=== PATIENT | female | born 1960 | race Caucasian/White ===

== ENCOUNTER 2023-10-07 19:26 | Observation (INO) | payer OTHER ==
--- OUTSIDE RECORDS SUMMARY | 2023-10-07 19:32 | XMS REPORT | Continuity of Care Document ---
:1960 Author Organization [facility] t Address [address] [place] [address] [address] [place] [address] Care Team Providers Name Role Phone Dio Gupta Primary Care Physician BAIRON BELTRAN Attending Clinician Unavailable BAIRON BELTRAN Attending Clinician Unavailable [email or web address] Attending Clinician Unavailable Doctor Unassigned, [place] Attending Clinician Unavailable DARIEN BALLARD Attending Clinician Unavailable DARIEN BALLARD Attending Clinician Unavailable Goldy Kong Attending Clinician Adrianou_P Attending Clinician Unavailable [email or web address] Admitting Clinician Unavailable Abdoul_P Admitting Clinician Unavailable Payers Payer Name Policy Type Policy Number Effective Date Expiration Date [facility] [id number] 2017 00:00:00 [facility] [id number] 2023 PPO/POS 00:00:00 [facility] [id number] GROUP \T\ PENSION [id number] 2017 [facility] 00:00:00 Problems Condition Condition Condition Status Onset Resolution Last Treating Co mments Source Name Details Category Date Date Treatment Clinician Date Obesity Obesity Disease Active 2022-11 Univers (BMI (BMI 0-03 ity of 30-39.9) 30-39.9) 00:00: [place] [facility] Postmenopa Postmenopa Disease Active 2022-11 U nivers usal usal 0-03 ity of bleeding bleeding 00:00: [place] [facility] Chronic Chronic Disease Active 2022-11 Univers pain pain 0-03 ity of disorder disorder 00:00: [place] [facility] Cervical Cervical Disease Active 2022-11 Unive rs spondylosi spondylosi 0-03 it y of s s 00:00: [place] [facility] Tj' Tj' Disease Active U nivers s disease s disease 6- ity of 00:00: [place] [facility] Confusiona Confusion Problem Active 2023-07-06 Memoria l state al state 14:38:01 l (disorder) (disorder) Ruddy ann Active Problem 07/06/2023 [facility] Dizziness Dizziness Problem Active 2023-07-06 Memoria (finding) (finding) 14:38:01 l Active [place] Problem 07/06/2023 [facility] Headache Headache Problem Active 2023-07-06 Memoria (finding) (finding) 14:38:01 l Active [place] Problem 07/06/2023 [facility] Hypertensi Hypertens Problem Active 2023-07-06 Memoria ve junito 14:38:01 l disorder, disorder, Herm glenna systemic systemic arterial arterial (disorder) (disorder) Active Problem 07/06/2023 [facility] Hyperlipid Hyperlipi Problem Active 2023-07-06 Memoria emia demia 14:38:01 l (disorder) (disorder) He ann Active Problem 07/06/2023 [facility] Hypothyroi Hypothyro Problem Active 2023-07-06 Memoria dism idism 14:38:01 l (disorder) (disorder) He ann Active Problem 07/06/2023 [facility] Lumbar Lumbar Problem Active 2023-07-06 John harley radiculopa radiculopa 14:38:01 l thy thy [place] (disorder) (disorder) Active Problem 07/06/2023 [facility] Morbid Morbid Problem Active 2023-07-06 [facility] obesity obesity 14:38:01 l (disorder) (disorder) Ruddy rmann Active Problem 07/06/2023 [facility] Paresthesi Problem Active 2023-07-06 M emoria a Paresthesi 14:38:01 l (finding) a Sb (finding) Active Problem 07/06/2023 [facility] Tardive Tardive Problem Active 2023-07-06 Me moria dyskinesia dyskinesia 14:38:01 l (disorder) (disorder) He rmann Active Problem 07/06/2023 [facility] Cervical Cervical Problem Active 2023-07-06 Memoria radiculopa radiculopa 14:38:01 l thy thy [place] (disorder) (disorder) Active Problem 07/06/2023 [facility] Allergies, Adverse Reactions, Alerts Allergy Allergy Status Severity Reaction(s) Onset Inactive Treating Comm ents Source Name Type Date Date Clinician PENICILL DRUG Active Swelling Univer s IN INGREDI 07-02 ity of 00:00: [place] [address] [place] [address] Branch Penicill Propensi Active Swelling Univ ers in ty to 07-02 ity of adverse 00:00: [place] reaction 00 Medical s Branch PENICILL Allergy Active Moderate Hives [place] [facility] Medical e Group ibuprofe ibuprofe Active Memori a n n l [place] penicill penicill Active Memori a in in l [place] Social History Social Habit Start Date Stop Date Quantity Comments Source Gender identity [facility]it y [facility] Sexual orientation Univer sity [facility] History of tobacco Cigarette Smoker University of use [facility] History of Social 2023-08-15 2023-08-15 Univers ity of function 00:00:00 00:00:00 [facility] Alcohol intake 2023-08-15 2023-08-15 Current drinker Unive rsity of 00:00:00 00:00:00 of alcohol [facility] (finding) [place] Alcohol Comment 2018-07-02 2018-07-02 social Universit y of 00:00:00 00:00:00 [facility] Sex Ass[birth year] Universit y of 00:00:00 00:00:00 [facility] Smoking Status Start Date Stop Date Source Occasional tobacco 2023-08-13 00:00:00 Universit y of [place] smoker [facility] Tobacco smoking status 2023-07-03 18:06:09 2023-07-03 Memor khadar Basurto 18:06:09 Medications Ordered Filled Start Stop Current Ordering Indication Dosage Frequency Signature Comments Components Source Medication Medication Date Date Medication? Clinician (SIG) Name Name [facility] Yes Take by Univers ubiquinol, 0-03 mouth. ity of 100 mg Cap 15:01: [address] coQ10, 2022-11 Yes Take by Univers ubiquinol, 0-03 mouth. ity of 100 mg Cap 15:01: [address] coQ10, 2022-11 Yes Take by Univers ubiquinol, 0-03 mouth. ity of 100 mg Cap 15:01: [address]102022-11 Yes Take by Univers ubiquinol, 0-03 mouth. ity of 100 mg Cap 15:01: [address] coQ102022-11 Yes Take by Univers ubiquinol, 0-03 mouth. ity of 100 mg Cap 15:01: [address] coQ102022-11 Yes Take by Univers ubiquinol, 0-03 mouth. ity of 100 mg Cap 15:01: [address] coQ10, 2022-11 Yes Take by Univers ubiquinol, 0-03 mouth. ity of 100 mg Cap 15:01: [address] coQ10, 2022-11 Yes Take by Univers ubiquinol, 0-03 mouth. ity of 100 mg Cap 15:01: [address] coQ10, 2022-11 Yes Take by Univers ubiquinol, 0-03 mouth. ity of 100 mg Cap 15:01: [address] coQ10, 2022-11 Yes Take by Univers ubiquinol, 0-03 mouth. ity of 100 mg Cap 15:01: [address] coQ10, 2022-11 Yes Take by Univers ubiquinol, 0-03 mouth. ity of 100 mg Cap 15:01: [address] coQ102022-11 Yes Take by Univers ubiquinol, 0-03 mouth. ity of 100 mg Cap 15:01: [address] Branch coQ102022-11 Yes Take by Univers ubiquinol, 0-03 mouth. ity of 100 mg Cap 15:01: [address] Branch coQ102022-11 Yes Take by Univers ubiquinol, 0-03 mouth. ity of 100 mg Cap 15:01: [place] [address] Medical Branch magnesium 2022-11- No 400mg Take 400 Un hany oxide 0-03 10-03 mg by ity of (MAGOX) 400 07:46: [place] mg tablet 27 :00 daily. Medical Branch magnesium 2022-11- No 400mg Take 400 Un hany oxide 0-03 10-03 mg by ity of (MAGOX) 400 07:46: [place] mg tablet 27 :00 daily. Medical Branch magnesium 2022-11- No 400mg Take 400 Un hany oxide 0-03 10-03 mg by ity of (MAGOX) 400 07:46: 00:[place] mg tablet 27 :00 daily. Medical Branch magnesium 2022-11- No 400mg Take 400 Un hany oxide 0-03 10-03 mg by ity of (MAGOX) 400 07:46: 00:[place] mg tablet 27 :00 daily. Medical Branch deutetraben Yes 24 mg = 2 M emoria azine 12 mg 6-30 tab, PO, l oral tablet 23:38: BID, # 120 Sb 00 tab, 3 Refill(s), Pharmacy: [facility], 154.94, cm, 05/09/23 13:08:00 CDT, Height, 92.273, kg, 05/09/23 13:08:00 CDT, Weight deutetraben 0 Yes 24 mg = 2 M emoria azine 12 mg 6-30 tab, PO, l oral tablet 23:38: BID, # 120 Sb 00 tab, 3 Refill(s), Pharmacy: [facility], 154.94, cm, 05/09/23 13:08:00 CDT, Height, 92.273, kg, 05/09/23 13:08:00 CDT, Weight [place] 9 Yes 18 mg = 2 Mem oria mg oral 3-17 tab, PO, l tablet 22:09: BID, # 120 Juliet nn 00 tab, 3 Refill(s) [place] 9 Yes 18 mg = 2 Mem oria mg oral 3-17 tab, PO, l tablet 22:09: BID, # 120 [place] nn 00 tab, 3 Refill(s) spironolact Yes TAKE 1 John harley one 50 mg 3-15 TABLET BY l oral tablet 15:35: MOUTH ONCE Sb DAILY UTILIZATION MANAGER Thyroid Yes TAKE 1 Memor ia 60 mg oral 3-15 TABLET BY l tablet 15:35: MOUTH ONCE [place] DAILY venlafaxine Yes TAKE 1 John harley 75 mg oral 3-15 CAPSULE BY l capsule, 15:35: MOUTH ONCE Her lott extended DAILY WITH release FOOD spironolact Yes TAKE 1 John harley one 50 mg 3-15 TABLET BY l oral tablet 15:35: MOUTH ONCE Sb DAILY UTILIZATION MANAGER Thyroid 0 Yes TAKE 1 Memor ia 60 mg oral 3-15 TABLET BY l tablet 15:35: MOUTH ONCE [place] DAILY venlafaxine Yes TAKE 1 John harley 75 mg oral 3-15 CAPSULE BY l capsule, 15:35: MOUTH ONCE Her lott extended DAILY WITH release FOOD atorvastati Yes 20 mg = 1 M emoria n 20 mg 3-15 tab, PO, l oral tablet 15:34: Bedtime, # Sb 00 90 tab, 0 Refill(s) atorvastati 0 Yes 20 mg = 1 M emoria n 20 mg 3-15 tab, PO, l oral tablet 15:34: Bedtime, # Sb 00 90 tab, 0 Refill(s) CoQ10 2022-0 Yes PO, Daily, Memori a 3-15 0 l 15:33: Refill(s) CoQ10 2022-0 Yes PO, Daily, Memori a 3-15 0 l 15:33: Refill(s) [place] 00 Verapamil 2019-0 Yes 120 mg, Memor ia 3-27 PO, Daily, l 18:21: 0 Sb 00 Refill(s) verapamil 2020-0 Yes 120 mg, Memor ia 3-27 PO, Daily, l 18:21: 0 Sb 00 Refill(s) Verapamil 2020-0 Yes 120 mg, Memor ia 3-27 PO, Daily, l 18:21: 0 [place] 00 Refill(s) verapamil 2020-0 Yes 120 mg, Memor ia 3-27 PO, Daily, l 18:21: 0 Sb 00 Refill(s) gabapentin 2018-11 Yes 300 mg = 1 M emoria 300 MG Oral 2-27 cap, PO, l Capsule 19:16: TID, # 90 Juliet nn 00 cap, 0 Refill(s) gabapentin 2018-11 Yes 300 mg = 1 M emoria 300 mg oral 2-27 cap, PO, l capsule 19:16: TID, # 90 Juliet nn 00 cap, 0 Refill(s) indapamide 2018-11 Yes 1.25 mg = Me moria 1.25 mg 2-27 1 tab, PO, l oral tablet 19:16: QAM, # 30 H ermann 00 tab, 0 Refill(s) gabapentin 2018-11 Yes 300 mg = 1 M emoria 300 MG Oral 2-27 cap, PO, l Capsule 19:16: TID, # 90 Juliet nn 00 cap, 0 Refill(s) gabapentin 2018-11 Yes 300 mg = 1 M emoria 300 mg oral 2-27 cap, PO, l capsule 19:16: TID, # 90 Juliet nn 00 cap, 0 Refill(s) indapamide 2018-11 Yes 1.25 mg = Me moria 1.25 mg 2-27 1 tab, PO, l oral tablet 19:16: QAM, # 30 H ermann 00 tab, 0 Refill(s) Lorazepam Yes See Memoria 0.5 MG Oral 6-28 Instructio l Tablet 18:15: ns, Take 1 Juliet nn [Ativan] 00 tab po 1 hour prior to MRI, may repeat q 15 min. if still anxious, # 5 tab, 0 Refill(s), called to pharmacy Lorazepam Yes See Memoria 0.5 MG Oral 6-28 Instructio l Tablet 18:15: ns, Take 1 Juliet nn [Ativan] 00 tab po 1 hour prior to MRI, may repeat q 15 min. if still anxious, # 5 tab, 0 Refill(s), called to pharmacy hydrochloro Yes 1 tab, PO, Memoria thiazide-sp 6-18 Daily, 0 l ironolacton 20:08: Refill(s) H ermann e 25 mg-25 00 mg oral tablet thyroid Yes 120 mg = 1 John harley (CARE HOME) 120 6-18 tab, PO, l MG Oral 20:08: Daily, 0 Kenny n Tablet [UTILIZATION MANAGER 00 Refill(s) Thyroid] Hydrochloro Yes 1 tab, PO, Memoria thiazide 25 6-18 Daily, 0 l MG / 20:08: Refill(s) [place] Spironolact 00 one 25 MG Oral Tablet hydrochloro Yes 1 tab, PO, Memoria thiazide-sp 6-18 Daily, 0 l ironolacton 20:08: Refill(s) H ermann e 25 mg-25 00 mg oral tablet thyroid Yes 120 mg = 1 John harley (CARE HOME) 120 6-18 tab, PO, l MG Oral 20:08: Daily, 0 Kenny n Tablet [UTILIZATION MANAGER 00 Refill(s) Thyroid] Hydrochloro Yes 1 tab, PO, Memoria thiazide 25 6-18 Daily, 0 l MG / 20:08: Refill(s) Sb Spironolact 00 one 25 MG Oral Tablet coQ10, Yes Take by Univers ubiquinol, 8-22 mouth. ity of 100 mg Cap 15:28: [place] 24 Medical Branch magnesium Yes 400mg Take 400 Uni vers oxide 8-22 mg by ity of (MAGOX) 400 15:28: mouth [place] mg tablet 24 daily. Medical Branch coQ10, Yes Take by Univers ubiquinol, 8-22 mouth. ity of 100 mg Cap 15:28: [place] 24 Medical Branch aspirin 81 Yes 81mg Take 1 Unive rs mg EC 8-22 tablet by ity of tablet 00:00: mouth [place] 00 daily. Medical Branch nitroglycer Yes .4mg Place 1 Uni vers in 0.4 mg 8-22 tablet ity of sublingual 00:00: [place] tablet 00 tongue Medical every 5 Branch (five) minutes as needed for Chest pain. aspirin 81 3- No 81mg Take 1 Univ ers mg EC 8-22 10-03 tablet by ity of tablet 00:00: 00:00 mouth [place] 00 :00 daily. Medical Branch nitroglycer 3- No .4mg Place 1 Un hany in 0.4 mg 8-22 10-03 tablet ity of sublingual 00:00: 00:00 under the [place] tablet 00 :00 tongue Medical every 5 Branch (five) minutes as needed for Chest pain. aspirin 81 2023- No 81mg Take 1 Univ ers mg EC 8-22 10-03 tablet by ity of tablet 00:00: 00:00 mouth [place] 00 :00 daily. Medical Branch nitroglycer 3- No .4mg Place 1 Un hany in 0.4 mg 8-22 10-03 tablet ity of sublingual 00:00: 00:00 under the [place] tablet 00 :00 tongue Medical every 5 Branch (five) minutes as needed for Chest pain. aspirin 81 2022- No 81mg Take 1 Univ ers mg EC 8-22 10-03 tablet by ity of tablet 00:00: 00:00 mouth [place] 00 :00 daily. Medical Branch nitroglycer 3- No .4mg Place 1 Un hany in 0.4 mg 8-22 10-03 tablet ity of sublingual 00:00: 00:00 under the [place] tablet 00 :00 tongue Medical every 5 Branch (five) minutes as needed for Chest pain. aspirin 81 2022- No 81mg Take 1 Univ ers mg EC 8-22 10-03 tablet by ity of tablet 00:00: 00:00 mouth [place] 00 :00 daily. Medical Branch nitroglycer 3- No .4mg Place 1 Un hany in 0.4 mg 8-22 10-03 tablet ity of sublingual 00:00: 00:00 under the [place] tablet 00 :00 tongue Medical every 5 Branch (five) minutes as needed for Chest pain. atorvastati Yes Univer s n 20 mg 8-10 ity of tablet 00:00: [place] 00 Medical Branch UTILIZATION MANAGER THYROID 2017-0 Yes Univers 60 mg 8-10 ity of tablet 00:00: [place] 00 Medical Branch atorvastati 2018-0 Yes Univer s n 20 mg 8-10 ity of tablet 00:00: [place] [facility] UTILIZATION MANAGER THYROID 2018-0 Yes Univers 60 mg 8-10 ity of tablet 00:00: [place] [facility] atorvastati 2018-0 Yes Univer s n 20 mg 8-10 ity of tablet 00:00: [place] [address] Medical Branch UTILIZATION MANAGER THYROID 2018-0 Yes Univers 60 mg 8-10 ity of tablet 00:00: [place] [facility] atorvastati 2018-0 Yes Univer s n 20 mg 8-10 ity of tablet 00:00: [place] [address] Medical Branch UTILIZATION MANAGER THYROID 2018-0 Yes Univers 60 mg 8-10 ity of tablet 00:00: [place] [facility] atorvastati 2018-0 Yes Univer s n 20 mg 8-10 ity of tablet 00:00: [place] [address] Medical Branch UTILIZATION MANAGER THYROID 2018-0 Yes Univers 60 mg 8-10 ity of tablet 00:00: [place] [facility] atorvastati 2018-0 Yes Univer s n 20 mg 8-10 ity of tablet 00:00: [address] Branch UTILIZATION MANAGER THYROID 2018-0 Yes Univers 60 mg 8-10 ity of tablet 00:00: [place] [address] Medical Branch atorvastati 2018-0 Yes Univer s n 20 mg 8-10 ity of tablet 00:00: [place] [address] Medical Branch UTILIZATION MANAGER THYROID 2018-0 Yes Univers 60 mg 8-10 ity of tablet 00:00: [place] [address] Medical Branch atorvastati 2018-0 Yes Univer s n 20 mg 8-10 ity of tablet 00:00: [place] [address] Medical Branch UTILIZATION MANAGER THYROID 2018-0 Yes Univers 60 mg 8-10 ity of tablet 00:00: [place] [facility] atorvastati 2018-0 Yes Univer s n 20 mg 8-10 ity of tablet 00:00: [place] [address] Medical Branch atorvastati 2018-0 Yes Univer s n 20 mg 8-10 ity of tablet 00:00: [place] [address] Medical Branch UTILIZATION MANAGER THYROID 2018-0 Yes Univers 60 mg 8-10 ity of tablet 00:00: [place] [address] Medical Branch lisinopril 2018-0 Yes Univers 10 mg 8-10 ity of tablet 00:00: [place] [address] Medical Branch UTILIZATION MANAGER THYROID 2018-0 Yes Univers 60 mg 8-10 ity of tablet 00:00: [place] 00 Medical Branch atorvastati 2018-0 Yes Univer s n 20 mg 8-10 ity of tablet 00:00: [place] 00 Medical Branch UTILIZATION MANAGER THYROID 2018-0 Yes Univers 60 mg 8-10 ity of tablet 00:00: [place] 00 Medical Branch atorvastati 2018-0 Yes Univer s n 20 mg 8-10 ity of tablet 00:00: [place] 00 Medical Branch UTILIZATION MANAGER THYROID 2018-0 Yes Univers 60 mg 8-10 ity of tablet 00:00: [place] 00 Medical Branch atorvastati 2018-0 Yes Univer s n 20 mg 8-10 ity of tablet 00:00: [place] [address] Medical Branch UTILIZATION MANAGER THYROID 2018-0 Yes Univers 60 mg 8-10 ity of tablet 00:00: [place] 00 Medical Branch atorvastati 2018-0 Yes Univer s n 20 mg 8-10 ity of tablet 00:00: [place] [address] Medical Branch UTILIZATION MANAGER THYROID 2018-0 Yes Univers 60 mg 8-10 ity of tablet 00:00: [place] [address] Medical Branch atorvastati 2018-0 Yes Univer s n 20 mg 8-10 ity of tablet 00:00: [place] [address] Medical Branch UTILIZATION MANAGER THYROID 2018-0 Yes Univers 60 mg 8-10 ity of tablet 00:00: [place] [address] Medical Branch atorvastati 2018-0 Yes Univer s n 20 mg 8-10 ity of tablet 00:00: [place] [address] Medical Branch UTILIZATION MANAGER THYROID 2018-0 Yes Univers 60 mg 8-10 ity of tablet 00:00: [place] 00 Medical Branch lisinopril 2018-0 2023- No Univer s 10 mg 8-10 10-03 ity of tablet 00:00: 00:00 [place] 00 :00 Medical Branch lisinopril 2018-0 2023- No Univer s 10 mg 8-10 10-03 ity of tablet 00:00: 00:00 [place] 00 :00 Medical Branch lisinopril 2018-0 2023- No Univer s 10 mg 8-10 10-03 ity of tablet 00:00: 00:00 [place] 00 :00 Medical Branch lisinopril 2018-0 3- No Univer s 10 mg 8-10 10-03 ity of tablet 00:00: 00:00 [place] 00 :00 Medical Branch spironolact 2018-0 Yes Univer s one-hydroch 7-23 ity of lorothiazid 00:00: [place] e 25-25 mg 00 Medical per tablet Branch spironolact 2018-0 Yes [place] one-hydroch 7-23 ity of lorothiazid 00:00: [place] e 25-25 mg 00 Medical per tablet Branch spironolact 2018-0 Yes [place] one-hydroch 7-23 ity of lorothiazid 00:00: [place] e 25-25 mg 00 Medical per tablet Branch spironolact 2018-0 Yes [place] one-hydroch 7-23 ity of lorothiazid 00:00: [place] e 25-25 mg 00 Medical per tablet Branch spironolact 2018-0 Yes [place] one-hydroch 7-23 ity of lorothiazid 00:00: [place] e 25-25 mg 00 Medical per tablet Branch spironolact 2018-0 Yes [place] g[place] one-hydroch 7-23 ity of lorothiazid 00:00: [place] e 25-25 mg 00 Medical per tablet Branch spironolact 2018-0 Yes [place] g[place] one-hydroch 7-23 ity of lorothiazid 00:00: [place] e 25-25 mg 00 Medical per tablet Branch spironolact 2018-0 Yes [place] g[place] one-hydroch 7-23 ity of lorothiazid 00:00: [place] e 25-25 mg 00 Medical per tablet Branch spironolact 2018-0 Yes [place] gao one-hydroch 7-23 ity of lorothiazid 00:00: [place] e 25-25 mg 00 Medical per tablet Branch spironolact 2018-0 Yes [place] gao one-hydroch 7-23 ity of lorothiazid 00:00: [place] e 25-25 mg 00 Medical per tablet Branch spironolact 2018-0 Yes [place] gao one-hydroch 7-23 ity of lorothiazid 00:00: [place] e 25-25 mg 00 Medical per tablet Branch spironolact 2018-0 Yes [place] gao one-hydroch 7-23 ity of lorothiazid 00:00: [place] e 25-25 mg 00 Medical per tablet Branch spironolact 2018-0 Yes [place] gao one-hydroch 7-23 ity of lorothiazid 00:00: [place] e 25-25 mg 00 Medical per tablet Branch spironolact 2018-0 Yes [place] gao one-hydroch 7-23 ity of lorothiazid 00:00: [place] e 25-25 mg 00 Medical per tablet Branch spironolact Yes [place] s one-hydroch 06-02 ity of lorothiazid 00:00: [place] e 25-25 mg 00 Medical per tablet Branch spironolact Yes [place] s one-hydroch 06-02 ity of lorothiazid 00:00: [place] e 25-25 mg 00 Medical per tablet Branch atorvastati atorvastati No atorvastat [place] 20 mg n 20 mg in 20 mg da tablet tablet tablet Medical Group fluticasone fluticasone No 2spray( BID fluticason [place] propionate propionate s) e da 50 50 propionate Medical mcg/actuati mcg/actuati 50 G roup on nasal on nasal mcg/actuat spray,suspe spray,suspe ion nasal nsion [place] nsion [place] spray,susp 2 sprays 2 sprays ension twice a day twice a day [place] 2 by by sprays intranasal intranasal twice a route for route for day by 30 days. 30 days. intranasal route for 30 days. lisinopril lisinopril No lisinopril [place] 10 mg 10 mg 10 mg da tablet tablet tablet Medical Group Myrbetriq Myrbetriq No Myrbetriq [place] 50 mg 50 mg 50 mg da tablet,exte tablet,exte tablet,ext Medical nded nded ended Group release release release nitroglycer nitroglycer No nitroglyce [place] in 0.4 mg in 0.4 mg rin 0.4 mg da sublingual sublingual sublingual Medical tablet tablet tablet Group UTILIZATION MANAGER Thyroid UTILIZATION MANAGER Thyroid No UTILIZATION MANAGER Thyroid [place] 60 mg 60 mg 60 mg da tablet tablet tablet Medical Group nystatin-tr nystatin-tr No nystatin-t [place] iamcinolone iamcinolone riamcinolo da 100,000 100,000 ne 100,000 Med ical unit/g-0.1 unit/g-0.1 unit/g-0.1 Group % topical % topical % topical cream cream cream spironolact spironolact No spironolac [place] one 25 one 25 tone 25 da mg-hydrochl mg-hydrochl mg-hydroch Medical orothiazide orothiazide lorothiazi Group 25 mg 25 mg de 25 mg tablet tablet tablet Vital Signs Vital Name Observation Time Observation Value Comments Source Systolic blood 2023-08-13 19:59:00 143 mm[Hg] Univer sity of pressure [facility] Diastolic blood 2023-08-13 19:59:00 68 mm[Hg] Unive rsity of pressure [facility] Heart rate 2023-08-13 19:59:00 58 /min [facility] Body temperature 2023-08-13 19:59:00 36.39 [facility]ac[facility]is [facility] 2023-08-13 19:59:00 20 /min [facility] Body height 2023-08-13 19:59:00 157.5 cm [facility] Body weight 2023-08-13 19:59:00 93.713 kg [facility] BMI 2023-08-13 19:59:00 37.79 kg/m2 [facility] Oxygen saturation in 2023-08-13 19:59:00 98 /min [facility] Arterial blood by [facility] Pulse oximetry Branch BP Diastolic 2019-01-26 00:00:00 77 mm[Hg] [facility] Height 2019-01-26 00:00:00 62 [in_i] [facility] BMI (Body Mass 2019-01-26 00:00:00 42.5 kg/m2 [facility]) Group BP Systolic 2019-01-26 00:00:00 125 mm[Hg] [facility] Body Weight 2019-01-26 00:00:00 232.2 [facility]lb_av[facility] BP Diastolic 2018-12-23 00:00:00 72 mm[Hg] [facility] Height 2018-12-23 00:00:00 62 [in_i] [facility] BMI (Body Mass 2018-12-23 00:00:00 44.3 kg/m2 [facility]) Group BP Systolic 2018-12-23 00:00:00 112 mm[Hg] [facility] Body Weight 2018-12-23 00:00:00 242 [lb_av] [facility] BP Diastolic 2018-12-10 00:00:00 81 mm[Hg] [facility] Height 2018-12-10 00:00:00 62 [in_i] [facility] BMI (Body Mass 2018-12-10 00:00:00 44.2 kg/m2 [facility]) Group BP Systolic 2018-12-10 00:00:00 165 mm[Hg] [facility] Body Weight 2018-12-10 00:00:00 241.9 [lb_av] [facility] Height 2018-12-04 00:00:00 62 [in_i] [facility] Height 2018-11-25 00:00:00 62 [in_i] [facility] Systolic (mm Hg) 2023-07-03 18:05:00 John rial Sb Diastolic (mm Hg) 2023-07-03 18:05:00 Mem orial Sb Heart Rate 2023-07-03 18:05:00 [facility] Sb Height 2023-07-03 18:05:00 5 [ft_i] [facility] [place] Weight 2023-07-03 18:05:00 [facility] Sb BMI Calculated 2023-07-03 18:05:00 Memori al [place] Systolic (mm Hg) 2023-05-09 18:02:00 John rial Sb Diastolic (mm Hg) 2023-05-09 18:02:00 Mem orial [place] Heart Rate 2023-05-09 18:02:00 [facility] Sb Height 2023-05-09 18:02:00 5 [ft_i] [facility] [place] Weight 2023-05-09 18:02:00 [facility] [place] BMI Calculated 2023-05-09 18:02:00 Memori al [place] Systolic (mm Hg) 2023-03-08 18:11:00 John rial Sb Diastolic (mm Hg) 2023-03-08 18:11:00 Mem orial Sb Heart Rate 2023-03-08 18:11:00 [facility] Sb Height 2023-03-08 18:11:00 5 [ft_i] [facility] [place] Weight 2023-03-08 18:11:00 [facility] Sb BMI Calculated 2023-03-08 18:11:00 Memori al [place] Systolic (mm Hg) 2023-01-23 15:22:00 John rial [place] Diastolic (mm Hg) 2023-01-23 15:22:00 [facility] [place] Heart Rate 2023-01-23 15:22:00 [facility] [place] Weight 2023-01-23 15:22:00 [facility] [place] Systolic (mm Hg) 2019-11-06 19:03:00 John rial Sb Diastolic (mm Hg) 2019-11-06 19:03:00 Mem [facility] [place] Heart Rate 2019-11-06 19:03:00 [facility] Respitory Rate 2019-11-06 19:03:00 Mem[facility] al [place] Height 2019-11-06 19:03:00 157.48 cm [facility] Weight 2019-11-06 19:03:00 [facility] BMI Calculated 2019-11-06 19:03:00 Memori al Sb BMI Calculated 2019-06-26 16:57:00 Memori al Sb Systolic (mm Hg) 2019-06-26 16:57:00 John rial Sb Diastolic (mm Hg) 2019-06-26 16:57:00 Mem orial Sb Heart Rate 2019-06-26 16:57:00 [facility] [place] Respitory Rate 2019-06-26 16:57:00 Memori al [place] Height 2019-06-26 16:57:00 154.94 cm [facility] [place] Weight 2019-06-26 16:57:00 [facility] BMI Calculated 2019-05-28 21:25:00 Memori al [place] Weight 2019-05-28 21:25:00 [facility] Height 2019-05-28 21:25:00 154.94 cm [facility] [place] Respitory Rate 2019-05-28 21:25:00 Memori al Bs Heart Rate 2019-05-28 21:25:00 [facility] Systolic (mm Hg) 2019-05-28 21:25:00 John rial Sb Diastolic (mm Hg) 2019-05-28 21:25:00 Mem orial Sb BMI Calculated 2019-04-28 19:21:00 Memori al Sb Weight 2019-04-28 19:21:00 [facility] [place] Height 2019-04-28 19:21:00 154.94 cm [facility] Respitory Rate 2019-04-28 19:21:00 Memori al [place] Heart Rate 2019-04-28 19:21:00 Adrianna Sb Systolic (mm Hg) 2019-04-28 19:21:00 Johnavril shanks [place] Diastolic (mm Hg) 2019-04-28 19:21:00 Jey Basurto Procedures Procedure Date / Time Performing Clinician Source Performed EXTERNAL PROVIDER RECORDS 2023-08-23 05:01:00 Doctor [facility] Name [facility] AUTHORIZATION TO RELEASE 2023-08-13 05:01:00 Doctor Erik [facility] PHI TO [facility] Name [facility] [place] REFERRAL- REQUEST/RESPONSE 2023-07-19 05:01:00 Doctor Erik [facility] [place] [facility] Sinus Surgery 2018-12-09 00:00:00 [facility] Tonsillectomy [facility] Cataract Surgery Complex [facility] Bilateral Tubal Ligation [facility] Plan of Care Planned Activity Planned Date Details Comments Source Instructions [facility] Encounters Start End Encounter Admission Attending Care Care Encounter Source Date/Time Date/Time Type Type Clinicians Facility Department ID 2023-11-19 2023-11-19 Outpatient R BAIRON BELTRAN [facility] [id number] [facility] 13:30:00 13:30:00 BAIRON BELTRAN [facility] 2023-10-10 2023-10-10 Outpatient SUJITIE SUJITIE [id number] [facility] 13:00:00 13:00:00 13 vignesh Basurto 2023-10-10 2023-10-10 Outpatient ALEKSANDRA LYONS [id number] [facility] 13:00:00 13:00:00 13 l Sb 2023-09-11 2023-09-11 Outpatient GC_GCBZW_Ka PRIV PRIV [id number] [facility] 00:00:00 00:00:00 diyala_S [id number] Medic al 2023-09-11 2023-09-11 Outpatient GC_GCBZW_Ka PRIV PRIV [id number] [facility] 00:00:00 00:00:00 diyala_S [id number] Medic al 2023-08-26 2023-08-26 Outpatient GC_GCBZW_Ka PRIV PRIV [id number] [facility] 00:00:00 00:00:00 diyala_S [id number] Medic al 2023-08-23 2023-08-23 Orders Doctor [facility] 1.2.840.114 [id number] Univers 00:00:00 00:00:00 Only Unassigned, ROSARIO 350.1.13.10 ity of [place] [facility] 4.2.7.2.686 Edd as [phone] [address] 2023-08-22 2023-08-22 Outpatient GC_GCBZW_Ka PRIV PRIV [id number] [facility] 00:00:00 00:00:00 diyala_S [id number] Medic [place] 2023-08-20 2023-08-20 Outpatient GC_GCBZW_Ka PRIV PRIV [id number] [facility] 00:00:00 00:00:00 diyala_S [id number] Medic [place] 2023-08-19 2023-08-19 Telephone [facility] 1.2.840.114 [id number] Univers 00:00:00 00:00:00 s, [place]air[place] 350.1.13.10 [facility] [place] [phone] Md dical NAL [address] [place] [address] 2023-08-19 2023-08-19 Patient Doctor [facility] 1.2.840.114 [id number] Univers 00:00:00 00:00:00 Secure Msg Unassigned, [place] 350.1.13.10 ity of [place] [phone] Md dical NAL [address] [place] [address] 2023-08-15 2023-08-15 Telephone [facility] 1.2.840.114 [id number] Univers 00:00:00 00:00:00 s, [place]airon [place] 350.1.13.10 [facility] 4[place] [phone] Md dical NAL [address] [place] [address] 2023-08-14 2023-08-14 Patient Thompson-Tammy [facility] 1.2.840.114 [id number] Univers 00:00:00 00:00:00 Secure Msg sBairon 350.1.13.10 ity of [place] [phone] Md dical NAL [address] [place] [address] 2023-08-13 2023-08-13 Outpatient R DEVIN BAIRON [facility] [id number] Univers 13:00:00 16:52:36 THOMPSON-ISAMAR BAIRON ity [facility] 2023-08-13 2023-08-13 Office [facility] 1.2.840.114 [id number] Univers 13:00:00 16:52:36 Visit sBairon 350.1.13.10 ity of [place] [phone] Md dical NAL [address] [place] [address] 2023-08-13 2023-08-13 Orders Doctor FRIDA 1.2.840.114 [id number] Univers 00:00:00 00:00:00 Only Unassigned, [place] 350.1.13.10 ity of [place] [facility] 4.2.7.2.686 Edd as [phone] [address] 2023-08-13 2023-08-13 Telephone [facility] 1.2.840.114 [id number] Univers 00:00:00 00:00:00 sBairon 350.1.13.10 ity of [place] [phone] Md dical NAL [address] [place] [address] 2023-08-12 2023-08-12 Outpatient R MORENA BELTRANSOL [facility] [id number] Univers 08:30:00 08:30:00 AMBROSIO-ISAMAR BAIRON ity [facility] 2023-08-09 2023-08-09 Outpatient R MORENA BELTRANSOL [facility] [id number] Univers 14:00:00 14:00:00 BAIRON BELTRAN ity of [facility] 2023-07-19 2023-07-19 Outpatient GC_GCBZW_Ka PRIV PRIV [id number] [facility] 00:00:00 00:00:00 diyala_S [id number] Medic al 2023-07-19 2023-07-19 Orders Doctor FRIDA 1.2.840.114 [id number] Univers 00:00:00 00:00:00 Only Unassigned, [place] 350.1.13.[address] [facility] 4.2.7.2.686 Edd as [phone] [place] [address] [place] 2023-07-16 2023-07-16 Outpatient GC_GCBZW_Ka PRIV PRIV [id number] [facility] 00:00:00 00:00:00 diyala_S [id number] Medic al 2023-07-12 2023-07-12 Outpatient GC_GCBZW_Ka PRIV PRIV [id number] [facility] 00:00:00 00:00:00 diyala_S [id number] Medic al 2023-07-11 2023-07-11 Outpatient GC_GCBZW_Ka PRIV PRIV [id number] [facility] 00:00:00 00:00:00 diyala_S [id number] Medic al 2023-07-03 2023-07-04 Outpatient MHIE MNA [id number] [facility] 18:00:00 04:59:59 Neurology 12 l Harris [place] 2023-07-03 2023-07-04 Outpatient MHIE MNA [id number] [facility] 18:00:00 04:59:59 Neurology 12 l Harris Sb 2023-07-04 2023-07-04 Outpatient GC_GCBZW_Ka PRIV PRIV [id number] [facility] 00:00:00 00:00:00 diyala_S [id number] Medic al 2023-07-04 2023-07-04 Outpatient GC_GCBZW_Ka PRIV PRIV [id number] [facility] 00:00:00 00:00:00 diyala_S [id number] Medic al 2023-07-03 2023-07-03 Outpatient EDILBERTO KongMISCHER [id number] 13:00:00 23:59:59 Goldy 12 Marvin 2023-07-03 2023-07-03 Outpatient MHIE MHIE [id number] [facility] 13:00:00 13:00:00 12 vignesh Basurto 2023-07-01 2023-07-01 Outpatient GC_GCBZW_Ka PRIV PRIV [id number] [facility] 00:00:00 00:00:00 diyala_S [id number] Medic al 2023-06-27 2023-06-27 Outpatient GC_GCBZW_Ka PRIV PRIV [id number] [facility] 00:00:00 00:00:00 diyala_S [id number] Medic al 2023-06-26 2023-06-26 Outpatient GC_GCBZW_Ka PRIV PRIV [id number] [facility] 00:00:00 00:00:00 diyala_S [id number] Medic al 2023-06-25 2023-06-25 Outpatient GC_GCBZW_Ka PRIV PRIV [id number] [facility] 00:00:00 00:00:00 diyala_S [id number] Medic al 2023-06-24 2023-06-24 Outpatient GC_GCBZW_Ka PRIV PRIV [id number] [facility] 00:00:00 00:00:00 diyala_S [id number] Medic al 2023-05-09 2023-05-10 Outpatient MHIE MNA [id number] [facility] 18:00:00 04:59:59 Neurology 11 l Rell Paigeann 2023-05-09 2023-05-10 Outpatient MHIE MNA [id number] [facility] 18:00:00 04:59:59 Neurology 11 l Rell Paigeann 2023-05-09 2023-05-09 [id number] 13:00:00 23:59:59 Goldy 11 Marvin 2023-05-09 2023-05-09 Outpatient MHIE MHIE [id number] [facility] 13:00:00 13:00:00 11 vignesh Basurto 2023-03-08 2023-03-09 Outpatient MHIE MNA [id number] [facility] 18:15:00 04:59:59 Neurology 10 l Rell Basurto 2023-03-08 2023-03-09 Outpatient MHIE MNA [id number] [facility] 18:15:00 04:59:59 Neurology 10 l Rell Basurto 2023-03-08 2023-03-08 Outpatient SUJIT [facility] [id number] 13:15:00 23:59:59 Goldy 10 Marvin 2023-03-08 2023-03-08 Outpatient MHIE MHIE [id number] [facility] 13:15:00 13:15:00 10 vignesh Basurto 2023-01-23 2023-01-24 Outpatient MHIE MNA [id number] [facility] 15:15:00 04:59:59 Neurology 09 l Rell Paigeann 2023-01-23 2023-01-24 Outpatient MHIE MNA [id number] [facility] 15:15:00 04:59:59 Neurology 09 l Rell [place] 2023-01-23 2023-01-23 [facility] [id number] 10:15:00 23:59:59 Goldy 09 Marvin 2023-01-23 2023-01-23 Outpatient MHIE MHIE [id number] [facility] 10:15:00 10:15:00 09 vignesh [place] 2020-09-28 2020-09-28 Outpatient Raju_P MMG MMG [id number] [place] 02:41:00 02:41:00 [facility] 2020-02-05 2020-02-06 Outpatient nullFlavo MNA [id number] [facility] 18:15:00 04:59:59 r Neurology 08 l Rell [place] 2020-02-05 2020-02-06 Outpatient nullFlavo MNA [id number] [facility] 18:15:00 04:59:59 r Neurology 08 l Harris [place] 2020-02-05 2020-02-05 Outpatient LUANA KongSCHER MISCHER [id number] 13:15:00 23:59:59 Goldy 08 Marvin 2020-02-05 2020-02-05 Outpatient MHIE MHIE [id number] [facility] 13:15:00 13:15:00 08 vignesh Basurto 2019-11-06 2019-11-07 Outpatient nullFlavo MNA [id number] [facility] 19:00:00 05:59:59 r Neurology 07 vignesh Basurto 2019-11-06 2019-11-07 Outpatient nullFlavo MNA [id number] [facility] 19:00:00 05:59:59 r Neurology 07 vignesh Basurto 2019-11-06 2019-11-06 Outpatient SUJIT [facility] [id number] 13:00:00 23:59:59 Goldy Alfredo Wong 2019-11-06 2019-11-06 Outpatient MHIE MHIE [id number] [facility] 13:00:00 13:00:00 07 vignesh Basurto 2019-08-20 2019-08-20 Ambulatory nullFlavo MNA [id number] [facility] 19:00:00 19:00:00 Pre-Reg r Neurology 06 vignesh Basurto 2019-08-20 2019-08-20 Ambulatory nullFlavo MNA [id number] [facility] 19:00:00 19:00:00 Pre-Reg r Neurology 06 vignesh Basurto 2019-08-20 2019-08-20 Outpatient MHIE MHIE [id number] [facility] 14:00:00 14:00:00 06 vignesh Basurto 2019-08-20 2019-08-20 [id number] 14:00:00 14:00:00 Goldy Jonn Wong 2019-08-06 2019-08-06 Ambulatory nullFlavo MNA [id number] [facility] 18:15:00 18:15:00 Pre-Reg r Neurology 05 vignesh Basurto 2019-08-06 2019-08-06 Ambulatory nullFlavo MNA [id number] [facility] 18:15:00 18:15:00 Pre-Reg r Neurology 05 vignesh Basurto 2019-08-06 2019-08-06 Outpatient MHIE MHIE [id number] [facility] 13:15:00 13:15:00 Florian Basurto 2019-08-06 2019-08-06 Outpatient SUJIT [facility]ER [facility] [id number] 13:15:00 13:15:00 Goldy 05 Marvin 2019-06-26 2019-06-27 Outpatient nullFlavo MNA [id number] [facility] 16:45:00 04:59:59 r Neurology 04 l Rell Basurto 2019-06-26 2019-06-27 Outpatient nullFlavo MNA [id number] [facility] 16:45:00 04:59:59 r Neurology 04 l Rell Basurto 2019-06-26 2019-06-26 [facility] [id number] 11:45:00 23:59:59 Goldy Aruna Wong 2019-06-26 2019-06-26 Outpatient MHIE MHIE [id number] [facility] 11:45:00 11:45:00 04 vignesh [place] 2019-06-25 2019-06-25 Outpatient MHIE MHIE [id number] [facility] 13:00:00 13:00:00 02 vignesh Basurto 2019-06-25 2019-06-25 Outpatient MHIE MHIE [id number] [facility] 13:00:00 13:00:00 02 vignesh [place] 2019-06-19 2019-06-19 Ambulatory nullFlavo MNA [id number] [facility] 15:30:00 15:30:00 Pre-Reg r Neurology 02 vignesh Harris Sb 2019-06-19 2019-06-19 [facility] [id number] 10:30:00 10:30:00 Goldy Shayy Wong 2019-06-11 2019-06-12 Outpatient nullFlavo MNA [id number] [facility] 17:00:00 04:59:59 r Neurology 03 vignesh Harris Sb 2019-06-11 2019-06-12 Outpatient nullFlavo MNA [id number] [facility] 17:00:00 04:59:59 r Neurology 03 l Harris Sb 2019-06-11 2019-06-11 [facility] [id number] 12:00:00 23:59:59 Goldy Yuki Marvin 2019-06-11 2019-06-11 Outpatient MHIE MHIE [id number] [facility] 12:00:00 12:00:00 03 vignesh Sb 2019-05-28 2019-05-29 Outpatient nullFlavo MNA [id number] [facility] 21:00:00 04:59:59 r Neurology 01 vignesh Rell Sb 2019-05-28 2019-05-29 Outpatient nullFlavo MNA [id number] [facility] 21:00:00 04:59:59 r Neurology 01 l Rell [place] 2019-05-28 2019-05-28 Outpatient SUJIT KongMISCHER [facility] [id number] 16:00:00 23:59:59 Goldy 01 Marvin 2019-05-28 2019-05-28 Outpatient MHIE MHIE [id number] [facility] 16:00:00 16:00:00 01 vignesh Basurto 2019-04-28 2019-04-29 Outpatient nullFlavo MNA [id number] [facility] 19:30:00 04:59:59 r Neurology 00 l Rell [place] 2019-04-28 2019-04-29 Outpatient nullFlavo MNA [id number] [facility] 19:30:00 04:59:59 r Neurology 00 l Rell [place] 2019-04-28 2019-04-28 Outpatient Luann MISCHER MISCHER [id number] 14:30:00 23:59:59 Goldy 00 Marvin 2019-04-28 2019-04-28 Outpatient MHIE MHIE [id number] [facility]oria 14:30:00 14:30:00 00 vignesh [place] 2019-01-26 2019-01-26 [place] - [id number] [place] 00:00:00 00:00:00 MD Abdoul: [address] [address] , Ph. 2018-12-23 2018-12-23 [place] - [id number] [place] 00:00:00 00:00:00 MD Abdoul: [address] [address] , Ph. 2018-12-10 2018-12-10 [place] - [id number] [place] 00:00:00 00:00:00 MD Abdoul: [address], [facility], [facility] [address] , Ph. 2018-12-04 2018-12-04 [place] - [id number] [place] 00:00:00 00:00:00 MD Abdoul: [address], [facility] [address] , Ph. 2018-11-25 2018-11-25 [place] - [id number] [place] 00:00:00 00:00:00 MD Abdoul: [address] [place] [address], [facility] [address] , Ph. Results Test Description Test Time Test Comments Results Result Comments Source CBC W Auto Differential panel - Blood 2018-12-10 06:53:00 Test Item Value Reference Range Interpretation Comme nts white blood count (test code = white blood count) 6.1 K/uL 4.0- 11.5 red blood count (test code = red blood count) 4.58 M/uL 3.80-5.2 0 Hemoglobin [Mass/volume] in Blood (test code = 718-7) 13.4 g/dL 10.5-15.7 hematocrit (test code = hematocrit) 41.1 % 34.0-50.0 Erythrocyte mean corpuscular volume [Entitic volume] (test 89.7 fL 78-98 code = 33275-9) Erythrocyte mean corpuscular hemoglobin [Entitic mass] (test 29.2 p g 26.2-33.4 code = 54534-3) mean corpuscular HGB conc (test code = mean corpuscular HGB 32.6 g/dL 31.5-36.2 conc) red cell distribution width (test code = red cell 12.1 % 11.5 -15.5 distribution width) Platelets [#/volume] in Blood (test code = 88114-7) 177 K/uL 13 7-338 Platelet mean volume [Entitic volume] in Blood (test code = 11.3 fL 8.4-11.8 55510-6) Neutrophils.band form/100 leukocytes in Blood (test code = 80.7 % 44.4-80.1 H 25680-4) Lymphocytes/100 leukocytes in Body fluid (test code = 14.2 % 10.0-50.0 05531-7) Monocytes/100 leukocytes in Blood by Automated count (test 4.5 % 3.6-12.04 code = 5905-5) Eosinophils/100 leukocytes in Blood by Automated count (test 0.3 % 0.0-5.41 code = 713-8) Basophils/100 leukocytes in Blood by Automated count (test 0.3 % 0.0-0.79 code = 706-2) [facility], [id number] 06:53:00 NeutrophilsBandLymphocyteAtypical LymphMonocytePlatelet EstimateMaMerit Health CentralBasic metabolic 2000 panel - Serum or [id number] 06:53:00 Test Item Value Reference Range Interpretation Comments Glucose [Mass/volume] in Serum or 131 mg/dL 82-115 H Plasma (test code = 2345-7) Urea nitrogen [Mass/volume] in 13 mg/dL 8-23 Serum or Plasma (test code = 3094-0) Osmolality of Serum or Plasma 274 280-300 L (test code = 2692-2) creatinine (test code = 0.9 mg/dL 0.50-0.90 creatinine) glomerular filtration rate (test >60.00 code = glomerular filtration rate) Urea nitrogen/Creatinine [Mass 14.4 12-20 Ratio] in Serum or Plasma (test code = 3097-3) sodium level (test code = sodium 136 mmol/L 135-145 level) potassium level (test code = 4.6 mmol/L 3.5-5.2 potassium level) chloride level (test code = 98 mmol/L 98-108 chloride level) CO2 (test code = CO2) 22 mmol/L 21-32 anion gap (test code = anion gap) 20.6 mEq/L 12-20 H calcium level (test code = calcium 9.7 mg/dL 8.8-10.2 level) [facility] [id number] 08:36:00Study Report [facility] 2000 panel - Serum or Plasma 2018-12-04 12:14:00 Test Item Value Reference Range Interpretation Comments Glucose [Mass/volume] in Serum or 106 mg/dL 82-115 Plasma (test code = 2345-7) Urea nitrogen [Mass/volume] in 8 mg/dL 8-23 Serum or Plasma (test code = 3094-0) Osmolality of Serum or Plasma 271 280-300 L (test code = 2692-2) creatinine (test code = 0.9 mg/dL 0.50-0.90 creatinine) glomerular filtration rate (test >60.00 code = glomerular filtration rate) Urea nitrogen/Creatinine [Mass 8.9 12-20 L Ratio] in Serum or Plasma (test code = 3097-3) sodium level (test code = sodium 136 mmol/L 135-145 level) potassium level (test code = 4.3 mmol/L 3.5-5.2 potassium level) chloride level (test code = 96 mmol/L 98-108 L chloride level) CO2 (test code = CO2) 27 mmol/L 21-32 anion gap (test code = anion gap) 17.3 mEq/L 12-20 calcium level (test code = calcium 10.2 mg/dL 8.8-10.2 level) total protein (test code = total 7.3 g/dL 6.6-8.7 protein) albumin (test code = albumin) 4.3 g/dL 3.5-5.2 globulin (test code = globulin) 3.0 gm/dL A/G ratio (test code = A/G ratio) 1.4 >1.0 bilirubin,total (test code = 0.8 mg/dL 0.0-1.2 bilirubin,total) AST/SGOT (test code = AST/SGOT) 22 U/L 15-32 Alanine aminotransferase 22 U/L 0-33 [Enzymatic activity/volume] in Serum or Plasma (test code = 1742-6) Alkaline phosphatase [Enzymatic 89 U/L 35-105 activity/volume] in Serum or Plasma (test code = 6768-6) [facility]/[id number] 12:14:00 Test Item Value Reference Range Interpretation Comments prothrombin time (test code = 10.4 seconds 10.3-12.3 prothrombin time) INR in Blood by Coagulation 0.94 assay (test code = 47691-3) [facility] thromb[facility]in [id number] 12:14:00 Test Item Value Reference Range Interpretation Comments INR in Blood by Coagulation 29.5 seconds 22.5-37.0 assay (test code = 86775-8) [facility] W Auto Differential panel - [id number] 12:14:00 Test Item Value Reference Range Interpretation Comments white blood count (test code = 4.4 K/uL 4.0-11.5 white blood count) red blood count (test code = red 5.02 M/uL 3.80-5.20 blood count) Hemoglobin [Mass/volume] in Blood 14.6 g/dL 10.5-15.7 (test code = 718-7) hematocrit (test code = hematocrit) 44.6 % 34.0-50.0 Erythrocyte mean corpuscular volume 89.0 fL 78-98 [Entitic volume] (test code = 33330-3) Erythrocyte mean corpuscular 29.0 pg 26.2-33.4 hemoglobin [Entitic mass] (test code = 67872-6) mean corpuscular HGB conc (test 32.6 g/dL 31.5-36.2 code = mean corpuscular HGB conc) red cell distribution width (test 11.9 % 11.5-15.5 code = red cell distribution width) Platelets [#/volume] in Blood (test 172 K/uL 137-338 code = 43236-2) Platelet mean volume [Entitic 12.0 fL 8.4-11.8 H volume] in Blood (test code = 85312-0) Neutrophils.band form/100 53.6 % 44.4-80.1 leukocytes in Blood (test code = 30407-6) Lymphocytes/100 leukocytes in Body 29.9 % 10.0-50.0 fluid (test code = 18934-9) Monocytes/100 leukocytes in Blood 10.9 % 3.6-12.04 by Automated count (test code = 5905-5) Eosinophils/100 leukocytes in Blood 4.3 % 0.0-5.41 by Automated count (test code = 713-8) Basophils/100 leukocytes in Blood 1.4 % 0.0-0.79 H by Automated count (test code = 706-2) [facility], [id number] 12:14:00 NeutrophilsBandLymphocyteAtypical LymphMonocyteEosinophilBasophilPlatelet EstimatePlatelet MorphologyAnisocytosisMacrocytosisGiant PlateletsAlliance Hospital
--- NOTE | 2023-10-07 21:23 | RAD REPORT ---
EXAM DESCRIPTION: RADChest Single View10/07/2023 8:06 pm CLINICAL HISTORY: abnormal stress test COMPARISON: Chest Pa And Lat (2 Views) dated 09/30/2023; Chest Pa And Lat (2 Views) dated 04/16/2022; CHEST PA AND LAT 2 VIEW dated 04/18/2010; CHEST PA AND LAT 2 VIEW dated 04/06/2010 TECHNIQUE: Portable AP view of the chest. FINDINGS: The lungs are clear. No pneumothorax or effusion. The cardiomediastinal contours are unre markable. IMPRESSION: No acute cardiopulmonary process.
[2023-10-07 21:25] LABS: Protime INR 1.05
[2023-10-07 21:31] LABS: Absolute Lymphocytes (CBC) 1.6 K/uL (0.7-4.9); Hematocrit 41.6 % (36.0-45.0); Lymphocytes % 36.7 % (15.3-44.8); MCV 91.1 fL (80-100); MPV 10.3 fL (7.6-11.3); Platelets 125 thou/uL (152-406); RBC Red Blood Cell Count 4.57 M/uL (3.86-4.86)
[2023-10-07 21:42] LABS: Albumin 3.7 g/dL (3.4-5.0); Bilirubin Direct 0.2 mg/dL (0-0.2); Bilirubin Indirect, Calculated 0.3 mg/dL (0.2-0.8); Bilirubin Total 0.5 mg/dL (0.2-1.0); Magnesium 1.9 mg/dL (1.6-2.4); Potassium 3.6 mEq/L (3.5-5.1); Protein, Total 7.1 g/dL (6.4-8.2); Troponin High Sensitivity 8.8 pg/mL (<58.9)
--- NOTE | 2023-10-07 21:54 | P.HP ---
Certification for Inpatient Patient admitted to: Observation With expected LOS: <2 Midnights Practitioner: I am a practitioner with admitting privileges, knowledge of patient current condition, hospital course, and medical plan of care. Services: Services provided to patient in accordance with Admission requirements found in Title 42 Section 412.3 of the Code of Federal Regulations Patient History Date of Service: 10/08/23 Reason for admission: Failed outpatient stress test, History of Present Illness: 62-year-old female patient with medical history significant for hyperlipidemia, hypertension admitted for management of failed outpatient stress test. 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 There was concern for ACS so patient was asked to be admitted for left heart cath. At the time of encounter patient denied overt episode of chest pain, nausea, vomiting, dizzy spells. Allergies Penicillins Allergy (Verified 09/30/23 08:32) Hives ibuprofen Adverse Reaction (Verified 09/30/23 08:32) Nausea/Vomiting/Heart pain Home Medications: Atorvastatin Calcium [Lipitor] 20 mg PO BEDTIME 10/13/15 Gabapentin [Neurontin] 400 mg PO BID 10/13/15 Spironolactone [Aldactone] 50 mg PO DAILY 10/13/15 Deutetrabenazine [Austedo] 12 mg PO BID 09/30/23 Hydroxychloroquine [Plaquenil*] 200 mg PO DAILY 09/30/23 Thyroid,Pork [Director Of Women'S Services Thyroid] 75 mg PO DAILY 09/30/23 Venlafaxine HCl [Venlafaxine HCl ER] 75 mg PO DAILY 09/30/23 Review of Systems General: Unremarkable Eyes: Unremarkable ENT: Unremarkable Respiratory: Unremarkable Cardiovascular: Unremarkable Gastrointestinal: Unremarkable Genitourinary: Unremarkable Musculoskeletal: Unremarkable Integumentary: Unremarkable Neurological: Unremarkable Physical Examination - Physical Exam General: Alert, Oriented x3 HEENT: Atraumatic, Normocephalic Neck: Supple Cardiovascular: Regular rate/rhythm, Normal S1 S2 Gastrointestinal: Soft and benign Musculoskeletal: No swelling Neurological: Normal speech - Studies Laboratory Data (last 24 hrs) 10/07/23 10/07/23 10/07/23 21:05 21:05 21:05 WBC 4.40 Hgb 13.6 Hct 41.6 Plt Count 125 L PT 11.5 INR 1.05 Sodium 138 Potassium 3.6 BUN 12 Creatinine 0.99 Glucose 76 Magnesium 1.9 Total Bilirubin 0.5 AST 22 ALT 28 Alkaline Phosphatase 75 Assessment and Plan - Plan Suspected ACS: Patient failed outpatient stress test Will continue on telemetry. Aspirin and statin therapy to be continued. Cardiology to evaluate for left heart catheterization. Hypertension: We will monitor vital signs per unit protocol and continue antihypertensive medications. Hyperlipidemia: Continue statin therapy. Prophylaxis: Lovenox for DVT prophylaxis. CODE STATUS: Full code. Disposition: We will have cardiology evaluate for left heart cath. - Advance Directives Does patient have a Living Will: No Does patient have a Durable POA for Healthcare: No
--- NOTE | 2023-10-07 21:54 | EDPHYS ---
Physician Documentation [facility] [place] Name: Ne Sanchez Age: 62 yrs Sex: Female : 1960 Arrival Date: 10/07/2023 Time: 19:26 Bed 7 Private MD: ED Physician Adam Peraza HPI: 10/07 20:02 This 62 yrs old Female presents to ER via Ambulatory with complaints of Numbness Of rt Hand. 20:02 Patient was sent to the ED by artist suspect for abnormal stress test that was performed rt in outpatient setting. She denies any chest pain at this time. Reports left hand numbness for complaints of her echocardiogram, but denies acute events, symptoms are moderate severity, no other aggravating alleviating factors.. Historical: - Allergies: 19:47 PCN; jb4 19:47 Ibuprofen; jb4 - PMHx: 19:47 Tardivediskonesia; high cholesterol; hoshimoto; HTN; jb4 - PSHx: 19:47 Cholecystectomy; tubal ligation; ANN Eye; ANN knee; jb4 - Immunization history:: Adult Immunizations up to date. - Social history:: Smoking status: Patient denies any tobacco usage or history of. Patient uses street drugs, marijuana. - Family history:: not pertinent. ROS: 20:02 Constitutional: Negative for fever, chills, and weight loss, Cardiovascular: Negative rt for chest pain, palpitations, and edema, Respiratory: Negative for shortness of breath, cough, wheezing, and pleuritic chest pain, Abdomen/GI: Negative for abdominal pain, nausea, vomiting, diarrhea, and constipation, MS/Extremity: Negative for injury and deformity, Skin: Negative for injury, rash, and discoloration, Neuro: Negative for headache, weakness, numbness, tingling, and seizure, Psych: Negative for depression, anxiety, suicide ideation, homicidal ideation, and hallucinations, Exam: 20:02 Constitutional: This is a well developed, well nourished patient who is awake, alert, rt and in no acute distress. Head/Face: Normocephalic, atraumatic. Chest/axilla: Normal chest wall appearance and motion. Nontender with no deformity. No lesions are appreciated. Cardiovascular: Regular rate and rhythm with a normal S1 and S2. No gallops, murmurs, or rubs. Normal PMI, no JVD. No pulse deficits. Respiratory: Lungs have equal breath sounds bilaterally, clear to auscultation and percussion. No rales, rhonchi or wheezes noted. No increased work of breathing, no retractions or nasal flaring. Abdomen/GI: Soft, non-tender, with normal bowel sounds. No distension or tympany. No guarding or rebound. No evidence of tenderness throughout. Skin: Warm, dry with normal turgor. Normal color with no rashes, no lesions, and no evidence of cellulitis. MS/ Extremity: Pulses equal, no cyanosis. Neurovascular intact. Full, normal range of motion. Neuro: Awake and alert, GCS 15, oriented to person, place, time, and situation. Cranial nerves II-XII grossly intact. Motor strength 5/5 in all extremities. Sensory grossly intact. Cerebellar exam normal. Normal gait. Psych: Awake, alert, with orientation to person, place and time. Behavior, mood, and affect are within normal limits. 22:12 ECG was reviewed by the Attending Physician. Admitting MD requested I look at the sp4 patient's EKG, EKG time 2207, sinus bradycardia at the rate of 53, no ST elevation or depression. No ectopy Vital Signs: 19:50 BP 167 / 84; Pulse 55; Resp 15; Pulse Ox 100% on R/A; jb4 20:20 BP 173 / 67; Pulse 55; Resp 17 S; Pulse Ox 100% on R/A; ha1 21:20 BP 167 / 72; Pulse 54; Resp 18 S; Pulse Ox 100% on R/A; ha1 22:24 BP 145 / 77; Pulse 55; Resp 18 S; Pulse Ox 100% on R/A; ha1 23:30 BP 143 / 68; Pulse 57; Resp 15; Pulse Ox 98% ; jj7 10/08 00:00 BP 99 / 38; Pulse 56; Resp 16; Pulse Ox 98% ; jj7 01:00 BP 116 / 62; Pulse 54; Resp 13; Pulse Ox 98% ; jj7 02:22 BP 153 / 42; Pulse 61; Resp 14; Pulse Ox 99% ; jj7 07:00 BP 90 / 32; Pulse 54; Resp 18; Pulse Ox 97% on R/A; db 07:15 BP 124 / 49; Pulse 54; Resp 18; Pulse Ox 98% on R/A; db [place] Coma Score: 08:00 Eye Response: spontaneous(4). Motor Response: obeys commands(6). Verbal Response: db oriented(5). Total: 15. MDM: 10/07 19:45 Patient medically screened. rt 21:53 Differential diagnosis: Acute coronary syndrome, abnormal EKG, stress test. Data rt reviewed: vital signs, nurses notes, lab test result(s), EKG, radiologic studies. Consideration of Admission/Observation Patient was admitted/placed on observation. Management of patient was discussed with the following: Garage Laborer: Discussed with patient's artist suspect, recommends admission for observation. Independent interpretation of the following test(s) in the Emergency Department X-Ray: My interpretation is No consolidation sentiment upper [place] of x-ray images. Test considered but Not performed: CT: Low suspicion for PE, CT angiogram not indicated. Care significantly affected by the following chronic conditions: Hypertension. Counseling: I had a detailed discussion with the patient and/or guardian regarding the historical points, exam findings, and any diagnostic results supporting the discharge/admit diagnosis, lab results, radiology results, the need for further work-up and treatment in the hospital. 10/07 19:54 Order name: Basic Metabolic Panel; Complete Time: 21:48 rt 10/07 19:54 Order name: CBC with Diff; Complete Time: 21:48 rt 10/07 19:54 Order name: LFT's; Complete Time: 21:48 rt 10/07 19:54 Order name: Magnesium; Complete Time: 21:48 rt 10/07 19:54 Order name: PT-INR; Complete Time: 21:28 rt 10/07 19:54 Order name: Troponin HS; Complete Time: 21:48 rt 10/07 22:02 Order name: Magnesium EDMS 10/07 22:02 Order name: Magnesium EDMS 10/07 19:54 Order name: XRAY Chest (1 view); Complete Time: 21:28 rt 10/07 19:54 Order name: EKG; Complete Time: 19:55 rt 10/07 19:54 Order name: Cardiac monitoring; Complete Time: 21:10 rt 10/07 19:54 Order name: EKG - Nurse/Tech; Complete Time: 22:23 rt 10/07 19:54 Order name: IV Saline Lock; Complete Time: 21:10 rt 10/07 19:54 Order name: Labs collected and sent; Complete Time: 21:10 rt 10/07 19:54 Order name: O2 Per Protocol; Complete Time: 21:10 rt 10/07 19:54 Order name: O2 Sat Monitoring; Complete Time: 21:10 rt EC:12 Rate is 53 beats/min. Rhythm is regular, Sinus bradycardia. QRS [place] is Normal. OR sp4 interval is normal. QRS interval is normal. QT interval is normal. T waves are Inverted in leads II, III, V2, V3, V4, V5, V6. No ST changes noted. Clinical impression: No evidence of ischemia. Interpreted by me. Reviewed by me. Administered Medications: No medications were administered Disposition Summary: 10/07/23 21:53 Hospitalization Ordered Notes: Hospitalization Status: Observation rt Provider: Abimael Murphy rt Condition: Stable rt Problem: new rt Symptoms: are unchanged rt Bed/Room Type: Standard rt Location: Telemetry/MedSurg (observation)(10/08/23 07:21) bd Room Assignment: 409(10/08/23 07:21) Diagnosis - Abnormal stress test rt Forms: - Medication Reconciliation Form rt - SBAR form rt - Leadership Thank You Letter rt Signatures: Dispatcher [employer] Brisa Zheng Kimberly, RN RN kl Bryson, James, RN RN jb4 [place], Ryan, MD MD rt Pravin Crenshaw MD MD sp4 Corrections: (The following items were deleted from the chart) 19:50 19:47 PSHx: Hoshimoto disease; [place] [id number] 19:50 19:47 PSHx: HTN; [place] [id number] 19:50 19:47 PSHx: High cholesterol; [place] [id number] 10/08 03:48 10/07 21:53 Telemetry/MedSurg (observation) rt 10/08 03:48 10/07 21:53 rt 10/08 07:21 03:48 [facility] ER HOLD [facility] 07: 03:48 ERHOLD- bd
--- NOTE | 2023-10-07 21:54 | ER ---
Nurse's Notes [facility] Name: Ne Sanchez Age: 62 yrs Sex: Female : 1960 Arrival Date: 10/07/2023 Time: 19:26 Bed 7 Private MD: Diagnosis: Abnormal stress test Presentation: 10/07 19:46 Chief complaint: Patient states: Dr. Yuan told me to come to the ER so I could be jb4 here when he got here in the morning to get a heart cath. I am not having any issues today. Coronavirus screen: At this time, the client does not indicate any symptoms associated with coronavirus-19. Ebola Screen: No symptoms or risks identified at this time. Initial Sepsis Screen: Does the patient meet any 2 criteria? No. Patient's initial sepsis screen is negative. Does the patient have a suspected source of infection? No. Patient's initial sepsis screen is negative. Risk Assessment: Do you want to hurt yourself or someone else? Patient reports no desire to harm self or others. Onset of symptoms was October 07, 2023. Transition of care: patient was not received from another setting of care. 19:46 Method Of Arrival: Ambulatory jb4 19:46 Acuity: TANK 3 jb4 Historical: - Allergies: 19:47 PCN; jb4 19:47 Ibuprofen; jb4 - PMHx: 19:47 Tardivediskonesia; high cholesterol; hoshimoto; HTN; jb4 - PSHx: 19:47 Cholecystectomy; tubal ligation; ANN Eye; ANN knee; jb4 - Immunization history:: Adult Immunizations up to date. - Social history:: Smoking status: Patient denies any tobacco usage or history of. Patient uses street drugs, marijuana. - Family history:: not pertinent. Screenin:46 [facility] ED Fall Risk Assessment (Adult) History of falling in the last 3 months, jj7 including since admission No falls in past 3 months (0 pts) Confusion or Disorientation No (0 pts) Intoxicated or Sedated No (0 pts) Impaired Gait No (0 pts) Mobility Assist Device Used No (0 pt) Altered Elimination No (0 pt) Score/Fall Risk Level 0 - 2 = Low Risk Oriented to surroundings, Maintained a safe environment. Abuse screen: Denies threats or abuse. Nutritional screening: No deficits noted. Tuberculosis screening: No symptoms or risk factors identified. Assessment: 19:46 General: Appears in no apparent distress. comfortable, Behavior is calm, cooperative, jj7 appropriate for age. Pain: Denies pain. 20:20 Reassessment: Patient and/or family updated on plan of care and expected duration. Pain ha1 level reassessed. Patient is alert, oriented x 3, equal unlabored respirations, skin warm/dry/pink. 21:20 Reassessment: Patient and/or family updated on plan of care and expected duration. Pain ha1 level reassessed. Patient is alert, oriented x 3, equal unlabored respirations, skin warm/dry/pink. Patient denies pain at this time. 22:20 Reassessment: Patient and/or family updated on plan of care and expected duration. Pain ha1 level reassessed. Patient is alert, oriented x 3, equal unlabored respirations, skin warm/dry/pink. 10/08 07:02 Reassessment: report given to madai stringer. jj7 07:15 Neuro: Level of Consciousness is awake, alert, obeys commands, Oriented to person, db place, time, situation. Respiratory: No deficits noted. Airway is patent Respiratory effort is even, unlabored, Respiratory pattern is regular, symmetrical. 08:00 Reassessment: CALLED TO GIVE REPORT TO 4TH FLOOR. NURSE STATES IS WITH ANOTHER PATIENT db AND WILL CALL BACK. 08:02 Reassessment: Patient appears in no apparent distress at this time. Patient and/or db family updated on plan of care and expected duration. Pain level reassessed. Patient is alert, oriented x 3, equal unlabored respirations, skin warm/dry/pink. General: Appears in no apparent distress. comfortable, Behavior is calm, cooperative. 08:10 Reassessment: REPORT GIVEN TO GUILLERMO AVILEZ. db Vital Signs: 10/07 19:50 BP 167 / 84; Pulse 55; Resp 15; Pulse Ox 100% on R/A; jb4 20:20 BP 173 / 67; Pulse 55; Resp 17 S; Pulse Ox 100% on R/A; ha1 21:20 BP 167 / 72; Pulse 54; Resp 18 S; Pulse Ox 100% on R/A; ha1 22:24 BP 145 / 77; Pulse 55; Resp 18 S; Pulse Ox 100% on R/A; ha1 23:30 BP 143 / 68; Pulse 57; Resp 15; Pulse Ox 98% ; j7 10/08 00:00 BP 99 / 38; Pulse 56; Resp 16; Pulse Ox 98% ; j7 01:00 BP 116 / 62; Pulse 54; Resp 13; Pulse Ox 98% ; j7 02:22 BP 153 / 42; Pulse 61; Resp 14; Pulse Ox 99% ; j7 07:00 BP 90 / 32; Pulse 54; Resp 18; Pulse Ox 97% on R/A; db 07:15 BP 124 / 49; Pulse 54; Resp 18; Pulse Ox 98% on R/A; db Vitals: 10/07 19:46 Cardiac Rhythm Assessment Sinus long. 7 10/08 08:00 Cardiac Rhythm Assessment Regular Sinus long. db [place] Coma Score: 08:00 Eye Response: spontaneous(4). Motor Response: obeys commands(6). Verbal Response: db oriented(5). Total: 15. ED Course: 10/07 19:31 Patient arrived in ED. gm2 19:44 Adam Peraza MD is Attending Physician. rt 19:46 Mey Betancourt RN is Primary Nurse. jj7 19:46 Patient has correct armband on for positive identification. Bed in low position. Call [facility] light in reach. Side rails up X2. Adult w/ patient. 19:46 No provider procedures requiring assistance completed. jj7 19:47 Triage completed. jb4 19:47 Arm band placed on right wrist. jb4 20:00 Inserted saline lock: 20 gauge in right upper arm, using aseptic technique. Blood ha1 collected. inserted by GUILLERMO Farmer. 20:08 XRAY Chest (1 view) In Process Unspecified. EDMS 21:10 Basic Metabolic Panel Sent. ha1 21:10 CBC with Diff Sent. ha1 21:10 LFT's Sent. ha1 21:10 Magnesium Sent. ha1 21:10 PT-INR Sent. ha1 21:10 Troponin HS Sent. ha1 21:52 Abimael Murphy MD is Hospitalizing Provider. rt 10/08 07:59 Madai Jarrett, RN is Primary Nurse. db 08:12 Provided Education on: ADMISSION. Client placed on continuous cardiac and pulse db oximetry monitoring. NIBP monitoring applied. Warm blanket given. 08:12 Patient admitted, IV remains in place. db Administered Medications: No medications were administered Medication: 10/07 19:46 VIS not applicable for this client. jj7 Outcome: 21:53 Decision to Hospitalize by Provider. rt 10/08 08:12 Admitted to Tele via wheelchair, on monitor, Report called to GUILLERMO AVILEZ Condition: stable Instructed on the need for admit, 08:19 Patient left the ED. db Signatures: Dispatcher [employer] EDMS Anthony Rodriguez RN RN jb4 Noemy Vasquez RN RN Mey Duran RN RN jjMadai William RN RN db Adam Peraza MD MD rt Jenny Heller 2 Corrections: (The following items were deleted from the chart) 10/07 19:50 19:47 PSHx: Hoshimoto disease; 4 [place] 19:50 19:47 PSHx: HTN; jb4 jb 19:50 19:47 PSHx: High cholesterol; jb4 jb4
[2023-10-07] MEDS ORDERED: ACETAMINOPHEN 325 MG TABLET PO PRN (21:56)
[2023-10-07] MEDS ORDERED: ONDANSETRON 4 MG/2 ML VIAL IV PRN (21:56)
[2023-10-08 06:32] VITALS: BMI 37.5
--- NOTE | 2023-10-08 07:04 | P.PN ---
Subjective Date of Service: 10/08/23 Patient denies any active complaints at this time. However, she was scheduled for a hysterectomy and upon cardiac clearance she was found to have abnormal stress test and echocardiogram. She states that all her cardiac testing were abnormal. Patient is scheduled for cardiac catheterization later today. H owever, she was told that she could eat breakfast this morning. Patient will be kept n.p.o. after that but will do clear liquids for breakfast. *Patient's physician is Dr. Aceves, and if he is available today then patient will be transferred to his care. Review of Systems 10-point ROS is otherwise unremarkable Physical Examination - Vital Signs Temperature: 98 F (reviewed vitals) - Physical Exam General: Alert, In no apparent distress, Oriented x3 Respiratory: Clear to auscultation bilaterally, Normal air movement Cardiovascular: Regular rate/rhythm, Normal S1 S2, Systolic murmur Gastrointestinal: Normal bowel sounds, Soft and benign, Non-distended, No tenderness Musculoskeletal: No tenderness Integumentary: No rashes Neurological: Sensation intact, Cranial nerves 3-12 intact - Studies Laboratory Data (last 24 hrs) 10/07/23 10/07/23 10/07/23 21:05 21:05 21:05 WBC 4.40 Hgb 13.6 Hct 41.6 Plt Count 125 L PT 11.5 INR 1.05 Sodium 138 Potassium 3.6 BUN 12 Creatinine 0.99 Glucose 76 Magnesium 1.9 Total Bilirubin 0.5 AST 22 ALT 28 Alkaline Phosphatase 75 Medications List Reviewed: Yes Assessment & Plan - Problems (Diagnosis) (1) Abnormal nuclear stress test Current Visit: Yes Status: Acute (2) Abnormal uterine bleeding Current Visit: Yes Status: Acute (3) Thickened endometrium Current Visit: Yes Status: Acute (4) H/O Tj thyroiditis Current Visit: Yes Status: Acute (5) Tardive dyskinesia Current Visit: Yes Status: Acute (6) HTN (hypertension) Current Visit: Yes Status: Acute (7) Dyslipidemia Current Visit: Yes Status: Acute - Plan Plan: 1. Abnormal stress test in the workup for cardiac clearance for a hysterectomy for endometrial thickening and abnormal uterine bleeding. Patient is scheduled for cardiac catheterization later today. Cardiology has stated that patient can have a clear liquid diet this morning. Then we will go ahead and proceed with heart cath this afternoon. Otherwise, patient will be kept n.p.o. and will monitor patient closely. *Patient's PCP is Dr. Aceves. Will transfer care to Dr. Aceves if he is available later today. Discharge Plan: Home Plan to discharge in: 48 Hours - Advance Directives Does patient have a Living Will: No Does patient have a Durable POA for Healthcare: No - Code Status/Comfort Care Code Status Assessed: Yes Code Status: Full Code Critical Care: No Time Spent Managing PTS Care (In Minutes): 35
[2023-10-08 08:58] VITALS: TEMP 97.6
[2023-10-08] MEDS ORDERED: ENOXAPARIN 40 MG/0.4 ML SQ SCH (09:00)
[2023-10-08] MEDS ORDERED: FENTANYL CITR 100 MCG/2 ML ONE (11:54)
[2023-10-08] MEDS ORDERED: MIDAZOLAM HCL 2 MG/2 ML INJ ONE (11:55)
[2023-10-08] MEDS ORDERED: NA CHLORIDE 0.9% 500 ML ONE (12:04)
--- NOTE | 2023-10-08 13:07 | CON ---
Date of Consultation: 10/08/2023 Reason For Consultation: Chest pain. History Of Present Illness: This is a 62-year-old female, past medical history of dyslipidemia, hype rtension, presented to the emergency room with chest pain, left-sided, radiates to the left shoulder. She had a stress test recently in the office that was abnormal. Denies having any nausea, vomiting , or diaphoresis. She does have shortness of breath on exertion as well. Past Medical History: As outlined above in the HPI. Medications: Refer to reconciliation sheet for detailed list. Allergies: PENICILLIN, IBUPROFEN. Family History: No premature coronary artery disease or cancer. Social History: She does not drink or use any drugs. Review of Systems: All systems reviewed. They were negative except as mentioned in the HPI. Physical Examination: Vital Signs: Reviewed. Head and Neck: Pupils are equal, reactive to light. Intact eye movements. No JVD. No cervical lym phadenopathy. Neck: Supple. Thyroid is not enlarged. Lungs: Clear to auscultation bilaterally. No rhonchi, rales, or crackles. No accessory muscle use. Heart: Regular rate and rhythm. No extra sounds. Abdomen: Soft, nontender. Bowel sounds positive. No organomegaly. No masses or hernia. No rigidi ty or rebound. Extremities: No edema, clubbing, cyanosis. Intact pulses. Skin: No rash. Neurologic: Alert, awake, oriented x3. No acute focal deficits appreciated. Investigations: Troponin is negative. BUN is 12, creatinine 0.99. Hemoglobin 13.6. Assessment And Recommendation: 1.Chest pain. First cardiac enzymes negative. Positive stress test as an outpatient. This could b e unstable angina. Plan for coronary angiogram today. Keep n.p.o. for that. 2.Dyslipidemia. Recommend Lipitor 40 mg at bedtime. 3.Hypertension. Blood pressure is controlled. Resume home medication and adjust for blood pressure control as needed. SR/MODL Voice ID: [id number] Report ID: [id number]
[2023-10-08 14:41] VITALS: BP 108/59; O2SAT 97
--- NOTE | 2023-10-08 14:58 | OP ---
Date of Procedure: 10/08/2023 Surgeon: KATHLEEN HARDEN Procedures Performed: 1.Selective coronary angiogram. 2.Left heart catheterization. Indication: Unstable angina with abnormal stress test. Access: Right radial artery 6-Turkmen closed with TR band. Complications: None. Bleeding: Less than 20 mL. Description Of Procedure: After risks, benefits, alternatives were explained, patient agreed to proc edure and signed informed consent. Patient was brought into cardiac catheterization laboratory, prep ped and draped in sterile fashion. Then, I accessed right radial artery using pediatric micropunctur e kit, placed 6-Turkmen Slender sheath, took 5-Turkmen [place] 4.0 catheter into the aortic root over a J -wire, engaged left main and then right coronary artery, took standard views and the catheter was pus hed over the wire into the LV, measured the LVEDP and pullback did not record any gradient. Then I r emoved the catheter and the sheath, placed TR band with good hemostasis. Findings: 1.Left main; large and normal. 2.LAD; large with proximal luminal irregularities, mid 30% and distal 30%. Normal diagonal branches . 3.Left circumflex; moderate size and normal. 4.RCA; large and dominant with mid 30% stenosis. 5.LVEDP is borderline between 10 and 12 mmHg. Conclusion: Mild nonobstructive coronary artery disease. Recommendation: Medical management. SR/MODL Voice ID: [id number] Report ID: [id number]
--- NOTE | 2023-10-08 17:25 | P.DS ---
Admission Date: 10/07/23 Discharge Date: 10/08/23 Disposition: MA HOME/HOME HEALTH CARE Reason for Admission: Failed outpatient stress test, Brief History of Present Illness: ANTONIO HAS DYSPNEA. SHE HAD NORMAL CATH. SHE IS STABLE TO MA PER DR. HARDEN. Vital Signs/Physical Exam: Temp Pulse Resp BP Pulse Ox 97.6 F 51 18 108/59 L 98 10/08/23 12:50 10/08/23 14:35 10/08/23 14:35 10/08/23 14:35 10/08/23 08:57 Laboratory Data at Discharge: WBC 4.40 thou/uL (4.3-10.9) 10/07/23 21:05 Hgb 13.6 g/dL (12.0-15.0) 10/07/23 21:05 Hct 41.6 % (36.0-45.0) 10/07/23 21:05 Plt Count 125 thou/uL (152-406) L 10/07/23 21:05 PT 11.5 SECONDS (9.5-12.5) 10/07/23 21:05 INR 1.05 10/07/23 21:05 Sodium 138 mEq/L (136-145) 10/07/23 21:05 Potassium 3.6 mEq/L (3.5-5.1) 10/07/23 21:05 BUN 12 mg/dL (7-18) 10/07/23 21:05 Creatinine 0.99 mg/dL (0.55-1.02) 10/07/23 21:05 Glucose 76 mg/dL (74-106) 10/07/23 21:05 Magnesium 1.9 mg/dL (1.6-2.4) 10/08/23 02:40 Total Bilirubin 0.5 mg/dL (0.2-1.0) 10/07/23 21:05 AST 22 U/L (15-37) 10/07/23 21:05 ALT 28 U/L (13-56) 10/07/23 21:05 Alkaline Phosphatase 75 U/L (45-117) 10/07/23 21:05 Home Medications: Atorvastatin Calcium [Lipitor] 20 mg PO BEDTIME 10/13/15 Gabapentin [Neurontin] 400 mg PO BID 10/13/15 Spironolactone [Aldactone] 50 mg PO DAILY 10/13/15 Deutetrabenazine [Austedo] 12 mg PO BID 09/30/23 Hydroxychloroquine [Plaquenil*] 200 mg PO DAILY 09/30/23 Thyroid,Pork [[facility] Thyroid] 75 mg PO DAILY 09/30/23 Venlafaxine HCl [Venlafaxine HCl ER] 75 mg PO DAILY 09/30/23 Followup: Dio Aceves MD [ACTIVE - CAN ADMIT] - 1-2 Weeks (Call for appointment.) Osbaldo Harden MD [ACTIVE - CAN ADMIT] - 1-2 Weeks (Call for appointment.)
--- NOTE | 2023-10-10 15:23 | EKG ---
Test Date: 2023-10-08 Test Time: 10:03:47 Continuous Crusher Operator: ADOLFO MEASUREMENT RESULTS: Intervals: Rate: 52 NC: 170 QRSD: 92 QT: 478 QTc: 444 [place]: P: 53 NC: 170 QRS: 45 T: 177 INTERPRETIVE STATEMENTS: Sinus bradycardia Anterior infarct, age undetermined ST & T wave abnormality, consider lateral ischemia Abnormal ECG Compared to ECG 10/07/2023 22:08:45 ST (T wave) deviation now present T-wave abnormality no longer present Myocardial infarct finding still present Possible ischemia still present Electronically Signed On 10-10-23 15:14:04 WAGE AND HOUR INVESTIGATOR by Osbaldo Yuan
--- NOTE | 2023-10-10 15:24 | EKG ---
Test Date: 2023-10-07 Test Time: 22:08:45 Hand Cigar Maker: PREETI MEASUREMENT RESULTS: Intervals: Rate: 53 [place]: 176 QRSD: 96 QT: 478 QTc: 448 [place]: P: 49 [place]: 176 QRS: 70 T: 218 INTERPRETIVE STATEMENTS: Sinus bradycardia Anterior infarct, age undetermined T wave abnormality, consider inferolateral ischemia Abnormal ECG Compared to ECG 09/30/2023 09:42:20 Myocardial infarct finding now present T-wave abnormality now present ST (T wave) deviation no longer present Possible ischemia still present Electronically Signed On 10-10-23 15:14:45 CLINICAL COORDINATOR by Osbaldo Yuan
== END 2023-10-08 15:10 | disposition home or self-care (01) ==
LOC: ER 19:26 → ERHOLD 22:30 → 4TH 10-08 07:34
PROVIDERS: ADMIT Internal Medicine Nephrology; ATTEND Internal Medicine
PROC: 4A023N7 Measurement of Cardiac Sampling and Pressure, Left Heart, Percutaneous Approach (ICD-10-PCS; principal; 2023-10-07)
PROC: B2111ZZ Fluoroscopy of Multiple Coronary Arteries using Low Osmolar Contrast (ICD-10-PCS; 2023-10-07)
DX: I25.110 Atherosclerotic heart disease of native coronary artery with unstable angina pectoris (principal); I10 Essential (primary) hypertension; E78.5 Hyperlipidemia, unspecified; N93.9 Abnormal uterine and vaginal bleeding, unspecified; E06.3 Autoimmune thyroiditis; G24.01 Drug induced subacute dyskinesia; R01.1 Cardiac murmur, unspecified; R93.89 Abnormal findings on diagnostic imaging of other specified body structures; Z79.899 Other long term (current) drug therapy; Z88.0 Allergy status to penicillin; Z88.8 Allergy status to other drugs, medicaments and biological substances; Z90.49 Acquired absence of other specified parts of digestive tract
CPT/HCPCS: 93005 ×2; 85025; 80048; 36415; 83735 ×2; 85610; 80076; 84484; 71045; 93458; 76937; 99285; C1893; Q9966; J1650; J2250; J3010; G0378 ×4; J7040

== ENCOUNTER 2024-07-17 09:22 | Day surgery (SDC) | payer OTHER ==
[2024-07-15 14:27] LABS: Absolute Eosinophils 0.1 K/uL (0-0.5); Absolute Lymphocytes (CBC) 0.9 K/uL (0.7-4.9); Absolute Monocytes 0.3 K/uL (0.1-1.3); Absolute Neutrophil 1.6 K/uL (1.8-8.0); Basophils % 0.9 % (0-1.3); Eosinophils % 2.7 % (0-4.4); Hematocrit 40.1 % (36.0-45.0); Hemoglobin 13.2 g/dL (12.0-15.0); Lymphocytes % 32.3 % (15.3-44.8); MCH 29.1 pg (27.0-35.0); MCV 88.1 fL (80-100); MPV 9.2 fL (7.6-11.3); Monocytes % 9.2 % (3.3-12.3); Neutrophils % 54.9 % (41.7-73.7); Nucleated Red Blood Cells % 0.1 % (0-0); Platelets 143 thou/uL (152-406); RBC Red Blood Cell Count 4.55 M/uL (3.86-4.86); Red Cell Distribution Width 14.1 % (12.1-15.2)
[2024-07-15 15:04] LABS: Blood Morphology Comment NOT SEEN (NOT SEEN); Platelet Estimate ADEQ; White Blood Cell Scan OK (OK)
[2024-07-17] MEDS: Ringers Lactate 1,000 ML IV ONE (10:40)
[2024-07-17] MEDS ORDERED: MIDAZOLAM HCL 2 MG/2 ML INJ ONE (13:11)
[2024-07-17] MEDS ORDERED: LIDOCAINE 1% MPF 5 ML VIAL ONE (13:11)
[2024-07-17] MEDS ORDERED: propofoL 200 MG/20 ML VIAL IV ONE (13:11)
[2024-07-17] MEDS ORDERED: FENTANYL CITR 100 MCG/2 ML ONE (13:11)
[2024-07-17] MEDS ORDERED: ONDANSETRON 4 MG/2 ML VIAL ONE (13:20)
[2024-07-17] MEDS ORDERED: GLYCOPYRROLATE 0.2 MG/ML SYR ONE ×2 (13:27→13:33)
[2024-07-17] MEDS ORDERED: EPHEDRINE SULF 50 MG/ML VIAL ONE (13:35)
[2024-07-17] MEDS: CEFAZOLIN SODIUM 2 GM/VIAL ONE (13:40)
[2024-07-17] MEDS: LIDOCAINE HCL/EPINEPHRINE 20 ML MDV ONE (13:47)
--- NOTE | 2024-07-17 13:56 | P.OP ---
Preoperative diagnosis: RIGHT Lower Extremity Skin Lesion Postoperative diagnosis: RIGHT Lower Extremity Skin Lesion Primary procedure: Wide Excision of RIGHT Lower Extremity Skin Lesion Anesthesia: GETA + Local Estimated blood loss: <2cc Specimen: RIGHT Lower Extremity Skin Lesion Findings: 5cm x 4cm into adipose skin lesoin Complications: None Transferred to: Recovery Room Condition: Good
[2024-07-17 16:50] VITALS: BP 125/65; TEMP 97.2; O2SAT 98
--- NOTE | 2024-07-18 00:39 | OP ---
Date of Procedure: 07/17/2024 Surgeon: Sadiq Langston MD, Preoperative Diagnosis: Right lower extremity skin lesion. Postoperative Diagnosis: Right lower extremity skin lesion. Procedure Performed: Wide local excision of right lower extremity skin lesion. Anesthesia: General endotracheal plus local with 1% lidocaine with epinephrine. Estimated Blood Loss: 2 mL. Specimens: Right lower extremity skin lesion. Findings: Approximately 5 cm x 4 cm skin lesion of the right medial lower extremity above the ankle down into the adipose skin. Complications: None. Disposition: The patient was transferred to the recovery room in good condition. Procedure In Detail: After informed consent was obtained, the patient was brought to the operating r oom, prepped and draped in usual sterile fashion. After adequate anesthesia was achieved, I made an elliptical incision circumferentially around an obvious abnormality of skin with negative margins cir cumferentially around at the subcutaneous tissue using 15 blade. I then dissected down using electro cautery down to the subcutaneous fat, ultimately dissecting out the structure. After it was removed in its entirety, ligated using electrocautery, I placed marking stitches on the short superior, long was anterior, sent off for pathologic examination. The area was copiously irrigated, hemostasis was achieved with electrocautery at this point, and the wound was packed open with Vashe soaked gauze and sterile dressing was placed on the top. The patient tolerated the procedure without incident or complication and transferred to PACU in good condition. All counts were correct at the e nd of the case. JAMES/LEIDY Voice ID: [id number] Report ID: [id number]
== END 2024-07-17 15:25 | disposition home or self-care (01) ==
LOC: OR 09:22
PROVIDERS: ATTEND Surgery
PROC: 0HBKXZZ Excision of Right Lower Leg Skin, External Approach (ICD-10-PCS; principal; 2024-07-17 11:15)
DX: C44.712 Basal cell carcinoma of skin of right lower limb, including hip (principal)
CPT/HCPCS: 85025; 80048; 36415; 88305; 11606; J2704; J2001; J2250; J3010; J2405; J7120